=== PATIENT | female | born 1975 | race Hispanic/Latino ===

== ENCOUNTER 2020-08-25 07:06 | Outpatient (CLI) | payer OTHER ==
--- NOTE | 2020-08-26 09:19 | ULT ---
EXAM: US Gallbladder RUQ CLINICAL HISTORY: Right upper quadrant pain. COMPARISON: 04/10/2016 FINDINGS: Pancreas: The head and proximal pancreatic body have a normal echotexture Liver:Hepatic parenchyma has a normal echotexture. No hepatic masses or intrahepatic biliary dilatati on. Right hepatic lobe: 16.1 cm Gallbladder: Echogenic material within the lumen of the gallbladder compatible with gallstones. There does appear to be sludge. Gallbladder wall is not thickened. No pericholecystic fluid. Leal's sign:Negative Portal Vein: Patent. Appropriate directional flow Bile ducts: 0.6 cm common bile duct diameter, which is at the upper limits of normal Right kidney: No hydronephrosis. Right kidney measures 4.5 x 4.1 x 9.9 cm in length. IMPRESSION: 1. Sonographic evidence of cholelithiasis without evidence of cholecystitis 2. Upper normal common bile duct diameter. If there is concern for choledocholithiasis, consider ERCP or MRCP.
== END 2020-08-25 07:07 | disposition home or self-care (01) ==
LOC: BICULT 07:06
PROVIDERS: ATTEND Internal Medicine Gastroenterology
DX: R10.13 Epigastric pain (principal); K80.20 Calculus of gallbladder without cholecystitis without obstruction; Z83.71 Family history of colonic polyps
CPT/HCPCS: 76705